=== PATIENT | male | born 1970 | race African-American/Black ===

== ENCOUNTER → 2019-08-01 | Outpatient (CLI) | payer BC ==
--- NOTE | 2019-08-01 18:58 | Diagnostic Imaging Report ---
Lumbar Spine Radiographs: 5 views HISTORY: SCROTAL PAIN ;CHRONIC LBP COMPARISON: None available. DISCUSSION: The osseous structures are partially obscured by stool and bowel gas. 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 Moderate right convex curvature. Mild straightening of the normal lumbar lordosis. No displaced fracture or compression deformity is identified. Status post posterior fusion from T12 to L3 via bilateral taiwo and pedicle screw constructs, associated multilevel decompressive laminectomies. Disc Spaces: Multilevel degenerative changes, most notably severe at L4-5. Facets: Multilevel degenerative changes, most notably moderate at L5-S1. IMPRESSION: 1. No acute radiographic abnormality. 2. No evidence of hardware loosening or failure. 3. Multilevel degenerative changes, most notably at L4-5 and L5-S1. Signed by: Dr. Poncho Grover D.O., M.M.M. on 08/01/2019 6:55 PM
--- NOTE | 2019-08-04 08:34 | Diagnostic Imaging Report ---
Exam: Testicular ultrasound. Clinical History: Left testicle pain Findings: Sonographic evaluation of the testicles with Boswell scale, color Doppler, and waveform analysis. Both testes are normal in echogenicity and size with normal symmetric blood flow. RIGHT: The right testicle measures 3.9 x 2.1 x 3.0 cm. No intratesticular mass. The right epididymis measures 1.4 x 0.8 x 0.7 cm and appears unremarkable. Small right hydrocele. No varicocele. LEFT: The left testicle measures 4.0 x 1.9 x 2.7 cm. No intratesticular mass. The left epididymis measures 1.2 x 0.9 x 0.8 cm and appears unremarkable. Trace left hydrocele. No varicocele. Subcentimeter physiologic right and left inguinal lymph nodes. Impression: No testicular torsion. No intratesticular mass. Small right and trace left hydrocele. Signed by: Phuc Valentine MD on 08/04/2019 8:31 AM
== END ==
LOC: US 16:47
PROVIDERS: ATTEND Emergency Medicine
DX: N50.82 Scrotal pain (principal); M54.5 Low back pain
CPT/HCPCS: 72110; 76870; 93976